=== PATIENT | female | born 1930 | race Caucasian/White ===

== ENCOUNTER 2018-12-03 12:05 | Emergency (ER) | payer MEDICARE, MEDICAID ==
[2018-12-03] MEDS ORDERED: Acetaminophen 325 MG TAB ONE (13:01)
[2018-12-03 13:37] LABS: #Basophils 0.1 thou/uL (0.0-0.2); #Lymphocytes 0.5 thou/uL (1.20-3.40); #Monocytes 0.3 thou/uL (0.11-0.59); #Neutrophils 4.5 thou/uL (1.40-6.50); %Basophils 1.3 % (0.0-1.0); %Eosinophils 0.4 % (0.0-10.0); %Monocytes 6.1 % (0.0-10.0); %Neutrophils 83.2 % (42.0-75.0); Hemoglobin 11.7 g/dL (12.0-16.0); Mean Corpuscular HGB CONC 32.6 g/dL (32.0-36.0); Mean Corpuscular Hemoglobin 29.6 pg (27.0-31.0); Mean Corpuscular Volume 90.9 fL (78.0-98.0); Mean Platelet Volume 8.1 fL (7.4-10.4); Platelet Count 168 thou/uL (130-400); RBC Distribution Width 11.7 % (11.5-14.5); Red Blood Cell (RBC) Count 3.96 mill/uL (4.20-5.40); White Blood Cell (WBC) Count 5.4 thou/uL (4.8-10.8)
[2018-12-03 13:43] LABS: Bilirubin Negative (Negative); Blood, Urine Trace (Negative); Clarity CLEAR (Clear); Glucose, Urine (Dipstick) Negative (Negative); Leukocyte Negative (Negative); Nitrite Negative (Negative); Protein, Urine (Dipstick) 30 mg/dL (Neg-Trace); Specific Gravity, Urine 1.011 (1.002-1.036); pH, Urine 6.5 (5.0-9.0)
[2018-12-03 13:44] LABS: Bacteria/HPF None Seen HPF (None Seen); Hyaline Casts/LPF 0-3 HYALINE CAST LPF (0-3 Hyaline); Pathc Cast-AUWi Flag 0.27 (0-2.49); Squamous Epithelial 0-3 HPF (0-3); WBC/HPF 0-3 HPF (0-3)
--- NOTE | 2018-12-03 13:56 | RAD ---
AP view chest. HISTORY: Fever. AP view chest demonstrates the lungs to be well aerated. No evidence of active intrathoracic disease seen. No evidence of effusions, pneumonia or pneumothorax seen. IMPRESSION: Unremarkable AP view chest.
[2018-12-03 14:05] LABS: ALT (SGPT) 23 U/L (8-55); AST (SGOT) 26 U/L (5-34); Albumin 3.8 g/dL (3.4-4.8); Alkaline Phosphatase 47 U/L (40-150); Anion Gap 14 mmol/L (10-20); BUN (Urea Nitrogen) 17 mg/dL (9.8-20.1); Bilirubin, Total 0.4 mg/dL (0.2-1.2); Calc. Creatinine Clearance 0 mL/min (70-130); Calcium 9.4 mg/dL (7.8-10.44); Carbon Dioxide 22 mmol/L (23-31); Chloride 101 mmol/L (98-107); Estimated GFR-MDRD 58; Globulin 3.5 g/dL (2.4-3.5); Glucose 121 mg/dL (83-110); Potassium 3.8 mmol/L (3.5-5.1); Protein, Total 7.3 g/dL (6.0-8.3); Sodium 133 mmol/L (136-145)
--- NOTE | 2018-12-03 14:54 | RAD ---
EXAM: Chest one view: HISTORY: Dizziness, weakness, and vomiting COMPARISON: 06/14/2009 FINDINGS: Rotation to the right. Evidence for moderate size hiatal hernia. Heart size: Within normal limits. The lungs: Clear of acute process. No evidence for pneumonia, pleural effusion, acute edema, or pneumothorax, or other significant acute process. IMPRESSION: No significant acute intrathoracic disease. Moderate size hiatal hernia. Atherosclerosis of the aorta. 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
--- NOTE | 2018-12-03 15:40 | CT ---
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 No focal mass or midline shift. No intra or extra-axial hemorrhage. The visualized sinuses and mastoids are clear of acute process. IMPRESSION: No new mass or bleed or other significant acute intracranial process.
== END 2018-12-03 18:14 | disposition home or self-care (01) ==
LOC: ERS 12:05
DX: E86.0 Dehydration (principal); R53.1 Weakness; R21 Rash and other nonspecific skin eruption; K21.9 Gastro-esophageal reflux disease without esophagitis; E78.5 Hyperlipidemia, unspecified; I10 Essential (primary) hypertension; Z79.899 Other long term (current) drug therapy; Z79.82 Long term (current) use of aspirin
CPT/HCPCS: 36415; 70450; 71045; 80053; 81003; 81015; 83605; 84484; 85025; 87040; 87086; 87804; 93005; 96360; 96361